=== PATIENT | female | born 1985 | race Caucasian/White ===

== ENCOUNTER 2016-12-20 17:00 | Emergency (ER) | payer OTHER ==
[~2016-12-20 17:00] MED LIST: CHILDRENS CHEWA81 MG PO
[2016-12-20 17:39] LABS: BASO % 0.2 % (0.1-1.2); EOS # 0.2 10_X3_uL (0.0-0.4); EOS % 1.6 % (0.7-5.8); GRAN # 9.4 10_X3_uL (1.6-6.1); GRAN % 83.9 % (34.0-71.1); HEMATOCRIT 42.5 % (34-45); HEMOGLOBIN 14.2 g/dL (11.2-15.7); LYMPH # 1.2 10_X3_uL (1.2-3.7); LYMPH % 10.7 % (19.3-51.7); MEAN CORPUSCULAR HEMOGLOBIN 26.8 pg (27.0-33.0); MEAN CORPUSCULAR HGB CONC 33.4 g/dL (32.0-36.0); MEAN CORPUSCULAR VOLUME 80.2 fL (79-95); MEAN PLATELET VOLUME 9.7 fl (7.5-11.5); MONO # 0.4 10_X3_uL (0.2-0.9); MONO % 3.6 % (4.7-12.5); PLATELET COUNT 262 x10_3/uL (182-369); RED CELL DISTRIBUTION WIDTH 14.4 % (11.7-14.4); WHITE BLOOD COUNT 11.2 x10_3/uL (4.0-10.0)
[2016-12-20 17:55] LABS: ALBUMIN 3.8 gm/dL (3.4-5.0); ALKALINE PHOSPHATASE 93 U/L (50-136); ALT/SGPT 20 U/L (3.5-33.9); AST/SGOT 18 U/L (7.04-26.96); BILIRUBIN,TOTAL 0.52 mg/dL (0.0-1.0); BLOOD UREA NITROGEN 11 mg/dL (7-18); CARBON DIOXIDE 22 mmol/L (21-32); CREATININE 0.5 mg/dL (0.6-1.3); GLUCOSE,RANDOM 117 mg/dL (70-99); POTASSIUM 4.1 mmol/L (3.5-5.1); SODIUM 139 mmol/L (136-145); TOTAL PROTEIN 7.6 gm/dL (6.4-8.2)
[2016-12-20 19:12] LABS: URINE BILIRUBIN NEGATIVE (NEGATIVE); URINE BLOOD TRACE (NEGATIVE); URINE GLUCOSE (UA) NORMAL (NORMAL); URINE KETONE NEGATIVE (NEGATIVE); URINE LEUKOCYTE ESTERASE 1+ (NEGATIVE); URINE NITRATE NEGATIVE (NEGATIVE); URINE PROTEIN NEGATIVE (NEGATIVE); UROBILINOGEN NORMAL mg/dL (<1.0)
[2016-12-20 19:21] LABS: URINE BACTERIA TRACE (NONE SEEN); URINE RBC 0-5 /[HPF] (0-2); URINE SQUAMOUS EPITHELIAL CELL 0-10 /[HPF] (NONE SEEN)
== END 2016-12-20 19:54 | disposition home or self-care (01) ==
LOC: ER 17:00
PROVIDERS: Internal Medicine
DX: N39.0 Urinary tract infection, site not specified (principal); R11.10 Vomiting, unspecified; R19.7 Diarrhea, unspecified; Z98.51 Tubal ligation status
CPT/HCPCS: 36415; 80053; 81001; 85025; 87086; 96361; 96374; 96375; 96376; 99070; 99284-25